=== PATIENT | male | born 1950 | race Caucasian/White ===

== ENCOUNTER → 2017-07-13 | Outpatient (CLI) | payer MEDICARE, OTHER ==
[~2017-07-13] MED LIST: ACETAMINOPHEN325 MG PO; AMOXICILLIN 50500 MG PO; ASPIR 8181 M1 PO; AVANDIA8 MG PO; B-12 INJECTION; CEFUROXIME500 MG PO; CYANOCOBAL1000 MCG/1 IM; CYTOXAN; DOXYCYCLINE; EFFIENT10 MG PO; ELIQUIS5 MG PO; GLIPIZIDE ER5 MG PO; GLUCOPHAGE1000 MG PO; IRON325 PO; KEFLEX250 MG PO; LASIX 20 MG TAB20 MG PO; LEVAQUIN 500 M500 M2 PO; LEVAQUIN 750 M750 MG PO; LEVOTHYROXINE 0.15MG PO; LISINOPRIL10 MG PO; NIASPAN PO; NITROGLYCERIN0.4 MG SUBLING; NOVOLOG100 UNIT/1 SUBQ; ONDANSETRON HCL4 M2 PO; PIOGLITAZONE15 MG PO; PLAVIX 75 MG TA75 M1 PO; RITUXAN100 MG/10 IV; RITUXIMAB; SIMVASTATIN40 MG PO; SYNTHROID GT; SYNTHROID175 MCG PO; TESTOSTERON100 MG/ML INJECTION; VENTOLIN HFA 1818 GM INH; VITAMIN D1000 UNI1 PO; VITAMINC500 PO; ZYDELIG150 MG PO; [UNRECOGNIZED DRUG - OTHER]
[2017-07-13 12:08] LABS: HEMATOCRIT 30.4 % (42.0-52.0); HEMOGLOBIN 10.1 gm/dL (14.0-18.0); MCHC 33.4 g/dL (28.0-37.0); MCV 89.9 fL (80.0-100.0); MPV 9.3 fl. (7.2-11.1); RBC 3.38 mil/uL (4.50-6.00); RDW-CV 17.3 % (10.5-14.5); WBC 5.8 thou/uL (4.0-11.0)
[2017-07-13 12:19] LABS: ALBUMIN 3.3 g/dL (3.4-5.0); CALCIUM 9.2 mg/dL (8.5-10.1); CREATININE 1.4 mg/dL (0.6-1.3); TOTAL BILIRUBIN 0.4 mg/dL (<0.1-1.0); TOTAL PROTEIN 5.9 g/dL (6.4-8.2)
== END ==
LOC: M.LAB 11:43
PROVIDERS: Internal Medicine
DX: K92.2 Gastrointestinal hemorrhage, unspecified (principal); C91.11 Chronic lymphocytic leukemia of B-cell type in remission

== ENCOUNTER → 2017-07-29 | Outpatient (CLI) | payer MEDICARE, OTHER ==
[2017-07-29 10:44] LABS: CALCIUM 9.1 mg/dL (8.5-10.1); CREATININE 1.1 mg/dL (0.6-1.3); POTASSIUM 4.7 mmol/L (3.5-5.1)
== END ==
LOC: M.LAB 10:21
PROVIDERS: Internal Medicine Cardiovascular Disease
DX: E78.5 Hyperlipidemia, unspecified (principal); E03.9 Hypothyroidism, unspecified; I10 Essential (primary) hypertension; E11.9 Type 2 diabetes mellitus without complications; J18.9 Pneumonia, unspecified organism; R09.02 Hypoxemia; I25.10 Atherosclerotic heart disease of native coronary artery without angina pectoris; E11.65 Type 2 diabetes mellitus with hyperglycemia